=== PATIENT | male | born 1970 | race Caucasian/White ===

== ENCOUNTER 2016-11-11 05:00 | Inpatient (IN) | payer BC ==
--- NOTE | ~2016-11-11 | OP ---
Record Of Operation [facility] [address] [place]. [address] NAME: KAYKAY HEBERT : 68 STATUS : ADM IN PAT#: [id number] AGE: 46 ADM/REG DATE : 11/11/16 MR#: [id number] REPORT SERV DATE: 11/13/16 DICTATED BY: ARVIND BETTENCOURT DATE: 11/13/16 REPORT STATUS : Draft TRANSCRIBED BY: MODSagrario DATE: 11/13/16 DATE OF PROCEDURE: 11/13/2016 PROCEDURE: Bronchoscopy with bronchoalveolar lavage, endobronchial ultrasound, and transbronchial biopsies. INDICATION FOR PROCEDURE: The patient has a history of lymphoma, status post bone marrow transplant, who comes in with a multifocal pneumonia with microcavitation and mediastinal adenopathy with night sweats. PREOPERATIVE DIAGNOSIS: Multifocal pneumonia. POSTOPERATIVE DIAGNOSIS: Multifocal pneumonia. PROCEDURE NOTE: The patient was brought down to the bronchoscopy suite, the patient was intubated and sedated via anesthesia. The bronchoscope was inserted into the airway, angella was sharp. We instilled lidocaine down the left mainstem, angella, and right mainstem. He had sputum production noted bilaterally in the large airways. We then conducted a bronchoalveolar lavage using two aliquots in the left lower lobe and had a return of around 30. We then switched to endobronchial ultrasound. We were able to identify 4L, 4R, and 11S lymphadenopathy. No ATS station 7 was seen. We attempted 4L initially, but we were unable to obtain sample. We then switched to 4R, for which we obtained three slides and two cell blocks. We then switched to 11S and obtained one slide and two cell blocks. We then changed back to the old scope for transbronchial biopsies of the left lower lobe. We conducted five passes, for which the patient had a miniature amount of bleeding on the last two biopsies. We were able to obtain an adequate sample. At the end, there was hemostasis achieved and no pneumothorax noted. The patient was extubated and had some wheezing, for which albuterol ceased the wheezing in about 1 minute after albuterol puff. OUTCOME: Successful bronchoscopy, please follow up microbiological and cytological studies. JIMENA/GUZMAN Arvind Bettencourt MD / [id number] CC: Irina Hilton N.P.
--- NOTE | ~2016-11-11 | CN ---
Consultation Report [facility] [address] [place]. [address] NAME: KAYKAY HEBERT : 68 STATUS : ADM Joana PAT#: [id number] AGE: 46 ADM/REG DATE : 11/11/16 MR#: [id number] REPORT SERV DATE: 11/12/16 DICTATED BY: ARVIND BETTENCOURT DATE: 11/12/16 REPORT STATUS : Draft TRANSCRIBED BY: MODL DATE: 11/12/16 PULMONARY CONSULT NOTE DATE OF CONSULTATION: 11/12/2016 REQUESTING PHYSICIAN: Dr. Cassidy. REASON FOR CONSULTATION: Multifocal pneumonia in a patient with a history of lymphoma history and history of bone marrow transplant. CHIEF COMPLAINT: Not feeling well for the past 3 months with worsening shortness of breath. HISTORY OF PRESENT ILLNESS: Mr. Hebert is a 46-year-old gentleman with a past medical history of Hodgkin's lymphoma status post stem cell transplant. He had the lymphoma in 2003 and believes he had the stem-cell transplant in 2006. The patient notes that he has had pneumonia in the past. However, about 3 months ago, began having worsening shortness of breath, this has become significantly worse to the point where he states his functional status has become severely impaired, he cannot walk across the house without being short of breath. He does have chills at nighttime along with night sweats. Mild mucus production. Mild wheezing. He also has significant chronic pain which has been amplified in all of this. His sputum production is sometimes yellow to green. He had a CT scan in the ER which showed multifocal pneumonia with miniature cavitation and hilar adenopathy worse on the right. Otherwise, no further complaints. PAST MEDICAL HISTORY: Hodgkin's lymphoma in 2003, stem-cell transplant a couple of years later, chronic pain, history of pneumonia, and tobacco use. MEDICATIONS: The patient is on multiple medications, most prominently oxycodone, Neurontin, Wellbutrin. Tried Chantix recently but had psychogenic problems. ALLERGIES: NO KNOWN DRUG ALLERGIES. FAMILY HISTORY: Multiple family members with underlying coronary artery disease, father of lung cancer, mother had diabetes, other family members with hypertension and heart attacks. SOCIAL HISTORY: The patient is a smoker but recently quit 2 months ago. He works as a automobile painter. No alcohol use. REVIEW OF SYSTEMS: All pertinent review of systems are reviewed and is otherwise negative. PHYSICAL EXAMINATION: VITAL SIGNS: The patient is currently afebrile, heart rate in the 80s, respiratory rate Consultation Report [place] [id number] [facility] [place]. [address] NAME: KAYKAY HEBERT : 68 STATUS : ADM Joana PAT#: [id number] AGE: 46 ADM/REG DATE : 11/11/16 MR#: [id number] REPORT SERV DATE: 11/12/16 DICTATED BY: ARVIND BETTENCOURT DATE: 11/12/16 REPORT STATUS : Draft TRANSCRIBED BY: MODSagrario DATE: 11/12/16 normal, and oxygen saturation 96% on room air with blood pressure currently anywhere between 116 and 140 systolic. GENERAL: The patient is alert and oriented, in no acute distress. HEENT: No cervical lymphadenopathy. NECK: Supple. PULMONARY EXAMINATION: Mild wheezing bilaterally but otherwise good air movement. CARDIAC: Regular rate, no murmurs. ABDOMINAL EXAMINATION: Soft, nontender, and nondistended with positive bowel sounds. EXTREMITIES EXAMINATION: No lower extremity edema, peripheral pulses noted. No cyanosis. NEUROLOGIC: The patient has no focal neurological deficits. PSYCHIATRIC: The patient is calm. LABORATORY EXAMINATION: Mild leukocytosis on admission, good platelet count, negative procalcitonin, good kidney function. BNP is 16. IMAGING: CT scan shows bilateral adenopathy right greater than left with left lower lobe multifocal pneumonia with miniature cavitation. This abnormality is noted in essentially all lung johnson. ASSESSMENT AND PLAN: Mr. Hebert is a 46-year-old gentleman with a past medical history of bone marrow transplant after having Hodgkin's lymphoma, who presents with a multifocal pneumonia in the setting of chills and night sweats which has been going on for three months and worsening shortness of breath. 1. Multifocal pneumonia with mediastinal adenopathy: Unclear of this abnormality, the patient has been started on azithromycin and Rocephin for a presumed community-acquired pneumonia. He has a good differential; however, I am concerned of opportunistic infection in this patient. I gave the patient the option of continuing antibiotics and having a repeat CT scan here in about 2 to 3 weeks to ensure improvement in the pneumonia versus further biopsy. The patient mentioned that he would like to get this taken care of and wanted to proceed forward with bronchoscopy which will entail BAL, EBUS, and transbronchial biopsies. As aspergillosis within the differential transbronchial biopsies will help. We discussed the risk factors of respiratory failure, bleeding, pneumothorax, and with bronchoscopy. The patient would like to proceed after discussing the risks and benefits of this procedure along with alternatives. We will therefore make the patient n.p.o. and set up for bronchoscopy in the morning. 2. Wheezing: The patient has been started on DuoNebs and Dulera, agree with above. 3. Multifocal pneumonia: Continue antibiotics, we will have further studies from bronchoscopy. Thank you very much for this consultation and allowing us to participate in your patient's care, please call us with any further questions or concerns. HFQ/MODL Consultation Report [place] [id number] [facility] [place]. [address] NAME: KAYKAY HEBERT : 68 STATUS : ADM Joana PAT#: [id number] AGE: 46 ADM/REG DATE : 11/11/16 MR#: [id number] REPORT SERV DATE: 11/12/16 DICTATED BY: ARVIND BETTENCOURT DATE: 11/12/16 REPORT STATUS : Draft TRANSCRIBED BY: GUZMAN DATE: 11/12/16 Arvind Bettencourt MD / [id number] CC: Irina Hilton N.P.
--- NOTE | ~2016-11-11 | DS ---
Discharge Summary [place] [id number] [place]. [address] NAME: KAYKAY HEBERT : 68 STATUS : DIS IN PAT#: [id number] AGE: 46 ADM/REG DATE : 11/11/16 MR#: [id number] REPORT SERV DATE: 11/15/16 DICTATED BY: ROSCOE CHAVEZ DATE: 11/14/16 REPORT STATUS : Draft TRANSCRIBED BY: MODL DATE: 11/14/16 ADMISSION DATE: 11/11/2016 DISCHARGE DATE: 11/14/2016 REASON FOR ADMISSION: This is a 46-year-old male, who was admitted with left-sided pneumonia. Chest x-ray on admission would show unrevealing inspiration. CT of the chest, however, showed no PE, but bilateral hilar adenopathy and associated large infiltrative process in the left lung that was diffuse, also white blood cell count of 12,000. DISCHARGE DIAGNOSES: 1. Mediastinal hilar adenopathy. 2. Bilateral pneumonia. 3. History of Hodgkin lymphoma. 4. Chronic pain. 5. Chronic obstructive pulmonary disease. HOSPITAL COURSE: 1. Bilateral pneumonia. Consultation was made to Pulmonary, Dr. Arvind Bettencourt will see the patient. He was concerned the patient would potentially have opportunistic infection. He had given the patient option of continuing antibiotics and having a repeat CT scan in about two to three weeks versus further biopsy and the patient chose biopsy, so a bronchoscopy with BAL and EBUS and transbronchial biopsies were obtained. All pathology was negative and he had successful bronchoscopy. The patient was started on prednisone, Dulera, DuoNeb inhalers, also IV Rocephin and IV azithromycin. He had great improvement in his breathing status and it was felt today that he was stable for discharge. He is able to be weaned off oxygen altogether and was ambulating in room without debilitating shortness of breath. DISCHARGE CONDITION: Stable. DISCHARGE MEDICATIONS: 1. Wellbutrin 150 mg p.o. b.i.d. 2. Neurontin 1200 mg p.o. q.8 hours. 3. Synthroid 75 mcg p.o. daily. 4. Roxicodone 30 mg p.o. q.6 hours p.r.n. pain. 5. OxyContin 160 mg p.o. t.i.d. 6. Phenergan 25 mg p.o. p.r.n. 7. Zantac 150 mg p.o. b.i.d. 8. Colace 250 mg p.o. b.i.d. 9. Multivitamin one tablet daily. 10.Vitamin C one tablet daily. 11.Vitamin D3 one tablet daily. 12.Vitamin B12 one tablet daily. 13.Acetylcysteine 600 mg p.o. b.i.d. 14.Prednisone 20 mg p.o. daily. 15.Omnicef 300 mg p.o. b.i.d. x3 more days. Discharge Summary [place] [id number] [place]. [address] NAME: KAYKAY HEBERT : 68 STATUS : DIS IN PAT#: [id number] AGE: 46 ADM/REG DATE : 11/11/16 MR#: [id number] REPORT SERV DATE: 11/15/16 DICTATED BY: ROSCOE CHAVEZ DATE: 11/14/16 REPORT STATUS : Draft TRANSCRIBED BY: GUZMAN DATE: 11/14/16 16.Azithromycin 500 mg p.o. daily x3 more days. 17.Dulera 200/5 mcg inhaler two puffs inhaled b.i.d. 18.Albuterol MDI 90 mcg per spray two puffs inhaled q.4 hours p.r.n. 19.Albuterol nebulizers 0.083% per 3 mL inhaled q.4 hours p.r.n. Also prescription for nebulizer machine. DISCHARGE PLAN: The patient to establish primary care provider as he does not have one. The patient given phone number to call [facility] to find out which providers take his insurance and who are currently taking patients. Also the patient is to follow up in three months with Dr. Bettencourt for followup chest CT. DICTATED BY: JHOANA Lackey/GUZMAN Roscoe Chavez APN / [id number] CC: Irina Hilton N.P. Hisham F. Qutob, MD
--- NOTE | ~2016-11-11 | HP ---
History And Physical [facility] [address] [facility] [place]. [address] NAME: KAYKAY HEBERT : 68 STATUS : ADM Joana PAT#: [id number] AGE: 46 ADM/REG DATE : 11/11/16 MR#: [id number] REPORT SERV DATE: 11/11/16 DICTATED BY: CLOTILDE PEREZ DATE: 11/11/16 REPORT STATUS : Draft TRANSCRIBED BY: MODL DATE: 11/11/16 DATE OF ADMISSION: 11/11/2016 ATTENDING PHYSICIAN: Dr. Alejo. REASON FOR ADMISSION: Pneumonia, left-side, diffuse. HISTORY OF PRESENT ILLNESS: This is a 46-year-old white male with a history of Hodgkin's lymphoma and a stem cell transplant done at [facility]. He has chronic pain from his low back pain, degenerative disc disease. He is followed by nurse practitioner [facility] [place] with chronic pain management. He sees them every month. He has a nurse practitioner in the [facility] in [place], as primary care, Delphine Luna. This morning, he was in his usual state of uncomfortableness, unable to sleep in the supine position. He has been sleeping in a recliner for the last three years because of his back pain. He is trying a lot down and suddenly awakened with a hard sharp left-sided chest pain. The sharp left-sided chest pain is worse when he takes a deep breath. He tried to get up to throw cold water on his face. He had cold sweating and thought he was having a heart attack. He came to the emergency room, however, his EKG was normal and unchanged from previous and his troponin less than 0.02. His D-dimer test is slightly elevated. He was evaluated by Ryan, the nurse practitioner in the emergency room. CT scan of the chest was obtained that showed no PE, normal coronary arteries, and ascending and descending aorta but there was bilateral hilar adenopathy and associated large infiltrative process in the left lung that was diffuse. He is now coughing up greenish material though he has not manifested fever. His white count is slightly elevated to 12,000. Suspicion for the x-ray was whether this was a reactive adenopathy versus old hilar adenopathy from previous Hodgkin's disease or underlying neoplasm with secondary pneumonia. 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 The patient is admitted to observation for treatment. He says he got pain relief from the IV morphine that was given to him in the emergency room by Ryan. PAST MEDICAL HISTORY: He had Hodgkin's lymphoma treated in 2003 and 2004 with eventual stem- cell transplantation at [facility]. He has been followed by Dr. Wesley's staff there. HOME MEDICATIONS: Include the followin. Artificial Tears one drop p.r.n. 2. Vitamin C 500 mg every morning. 3. Wellbutrin SR 150 mg p.o. b.i.d. 4. Chantix to try to help stop some smoking. History And Physical [address] [place]. [address] NAME: KAYKAY HEBERT : 68 STATUS : ADM Joana PAT#: [id number] AGE: 46 ADM/REG DATE : 11/11/16 MR#: [id number] REPORT SERV DATE: 11/11/16 DICTATED BY: CLOTILDE PEREZ DATE: 11/11/16 REPORT STATUS : Draft TRANSCRIBED BY: GUZMAN DATE: 11/11/16 5. Docusate sodium 200 mg p.o. b.i.d. 6. Gabapentin 1200 mg p.o. q.8 hours. 7. Synthroid 75 mcg p.o. before breakfast. 8. Multivitamin 1 a day. 9. Naproxen 440 mg p.o. p.r.n. 10.Oxycodone 30 mg p.o. q.6 hours p.r.n. pain. 11.Oxycodone SR 80 mg p.o. three times a day. 12.Promethazine 25 mg daily p.r.n. 13.Ranitidine 150 mg p.o. b.i.d. 14.Solaraze Gel to his back p.r.n. 15.Vitamin D3, one a day. 16.B12 a 1000 mcg daily. ALLERGIES: NONE ARE KNOWN. 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 He started drinking when he was age 18 and drank until he was 33. 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 He was once . He has no known children. He believes his first had a child by another man and their marriage was annulled. He was and lived in [place], [place] for a period of time. At one time, had gone to [place] [facility] [place] with Pastor Gold Brandyn who had gotten him back in [place] in the past, so he is back since that time. FAMILY HISTORY: Mother has diabetes. Father has stage IV lung cancer. He is being treated in [place] now. He has a sister with diabetes and a brother with hypertension. REVIEW OF SYSTEMS: He has had no headache or eye pain. He does have a stiff neck. No fever, chills, or night sweats. He has a cough productive of greenish sputum. Left-sided chest pain is better after the morphine. He has no fever, chills, or night sweats. He did have cold sweats this morning when he had the anterior left chest pain. He did not have shortness of breath and the oxygen saturation concurs there is no hypoxemia. He has had no swelling in the lower extremities. No abdominal pain. No melena or hematemesis. No known adenopathy that has come up recently. No melena, hematemesis, fits, seizures, convulsions, unilateral weakness, nausea, vomiting, or diarrhea. The remainder of the review of systems is negative. PHYSICAL EXAMINATION: VITAL SIGNS: Blood pressure 129/88 with a heart rate of 106, respiratory rate 24, and oxygen saturation 97% on arrival. HEENT: EOMI. Sclerae clear. Conjunctivae pink. Rubric facies. NECK: No bruit without any JVD. CHEST: Inspiratory rhonchi and expiratory wheezing bilaterally, perhaps accentuated on the left greater than the right. HEART: Regular S1, S2 without murmur, gallop, or click. ABDOMEN: Soft, nontender. Bowel sounds positive. No HSM. History And Physical [address] [place]. [address] NAME: KAYKAY HEBERT : 68 STATUS : ADM Joana PAT#: [id number] AGE: 46 ADM/REG DATE : 11/11/16 MR#: [id number] REPORT SERV DATE: 11/11/16 DICTATED BY: CLOTILDE PEREZ DATE: 11/11/16 REPORT STATUS : Draft TRANSCRIBED BY: MODL DATE: 11/11/16 EXTREMITIES: Had no edema. Distal pulses are intact at the dorsalis pedis and posterior tibial. NEUROLOGIC: He withdraws to plantar stimulation. Heel Sewer is equal and symmetrical bilaterally. Coordination intact. He has no tremor. He is symmetric and equal neurologically. SKIN: Without rash, ecchymosis, or edema. LYMPHATICS: No adenopathy is palpable. Pharynx is clear. LABORATORY DATA: The CTA of the chest is as above. Chest x-ray was unrevealing with shallow inspiration and AP chest was unrevealing. His lactate level was 0.7. BNP 15.7. His sodium 139, potassium 3.1, creatinine 0.8, BUN 5, glucose 103, and lipase 67. Troponin less than 0.02. White blood cell count 35511, hemoglobin 13.6, hematocrit 39.6, and platelets 249,000. INR 1.1. D-dimer test was slightly elevated at 0.72. ASSESSMENT: 1. Probable pneumonia on the left chest. We will check sedimentation rate and procalcitonin supportive evidence. We will obtain a sputum culture; however, the patient has already received Rocephin and Zithromax by Jun earlier this morning. I am going to go ahead and add prednisone 20 mg a day for 5 days because of pleuritic left chest pain and see how he does with this. Continue the antibiotics converting to cefuroxime and Zithromax to complete the course at home if he is improved in the morning. 2. History of Hodgkin's disease with stem-cell transplant in 2004, seen initially by Dr. Leobardo Gandhi here and then referred to Dr. Steven Wesley at [place]. 3. Chronic pain low back degenerative disk disease and he is followed by the [facility] at [place] and nurse practitioner sees him monthly to refill his narcotics. 4. Hypokalemia. We will replace IV and p.o. 5. Out of nebulizers at home, he has been taking that as recently though he does have some wheezing. He says he wheezes frequently at home. PLAN: As above. We will send to observation with outpatient followup at the [facility]. JW/GUZMAN Clotilde Perez M.D. / [id number] CC: Chaitanya Alejo Jr, MD Beverly Coulter, N.P.
[2016-11-11 04:44] LABS: BASOPHILS 0.3 %; BASOPHILS ABSOLUTE 0.04 10/3/uL (0.0-0.16); EOSINOPHILS 1.6 %; EOSINOPHILS ABSOLUTE 0.21 10/3/uL (0.0-0.53); HEMOGLOBIN 13.6 g/dL (13.6-17.8); IMMATURE GRANULOCYTES 0.5 %; IMMATURE GRANULOCYTES ABSOLUTE 0.07 10/3/uL (0.0-0.11); LYMPHOCYTES 17.5 %; LYMPHOCYTES ABSOLUTE 2.27 10/3/uL (0.67-4.30); MEAN CORPUS HGB CONC 34.3 g/dL (32.0-36.0); MEAN CORPUSCULAR HEMOGLOB 30.4 pg (26.0-34.0); MEAN CORPUSCULAR VOLUME 88.4 fL (80-100); MONOCYTES 8.3 %; MONOCYTES ABSOLUTE 1.08 10/3/uL (0.21-1.20); NEUTROPHILS 71.8 %; PLATELET COUNT 249 10/3/uL (150-400); RBC DISTRIBUTION WIDTH 13.4 % (12.0-16.0); RED CELL COUNT 4.48 10/6/uL (4.7-6.1)
[2016-11-11 04:45] LABS: ER CBC TAT 0 Hrs 04 MinsNP; HEMATOCRIT 39.6 % (40.0-51.0); MANUAL DIFF NO %
[2016-11-11 04:52] LABS: INTERNATIONAL NORMAL RATI 1.1 UNITS (-); PARTIAL THROMBO TIME 30.4 SEC (22.5-37.2); PROTIME (NOT ORD) 14.4 SEC (12.0-14.5)
[2016-11-11 04:55] LABS: D-DIMER QUANTITATIVE 0.72 ug/mLFEU (< 0.50)
[~2016-11-11 05:00] MED LIST: BUDEPRION150 MG PO; CENTRUM TAB1 TAB PO; CYANO1000T PO; DOCUSATE SODIUM; LEVOTHYROXIN75 MCG PO; MULTIVIT/MIN PO; NEUR600 PO; OXYCON80 PO; PR25 PO; ROXICODONE30 MG PO; SOLARAZE3 %/W TOP; VITAMIN B-121000 MC1 SL; VITAMIN C100 MG PO; VITAMIN D1000 UNI1 PO; VITAMIN D400 UNI1 PO; WELLSR150 PO; WELLXL150 PO; ZANTAC 150 PO; ZANTAC25 MG PO
[2016-11-11 05:01] LABS: BUN (BLOOD UREA NITROGEN) 5 MG/DL (6-23); CALCIUM, SERUM 9.4 MG/DL (8.5-10.4); CHEST PAIN PROFILE TAT 0 Hrs 21 Mins; CHLORIDE, SERUM 103 MMOL/L (96-112); CO2 (CARBON DIOXIDE) 29 MMOL/L (24-34); GFR AFRICAN AMERICAN 123 ML/MIN (>=60); GFR NON AFRICAN AMERICAN 106 ML/MIN (>=60); GLUCOSE, SERUM 103 MG/DL (60-99); POTASSIUM, SERUM 3.1 MMOL/L (3.5-5.3); SODIUM, SERUM 139 MMOL/L (135-148); TROPONIN I <0.02 NG/ML (<0.05)
[2016-11-11] MEDS ORDERED: WELLSR150 PO (07:37)
[2016-11-11] MEDS ORDERED: SYN075 PO (07:38)
[2016-11-11] MEDS ORDERED: NEUR400 PO (07:38)
[2016-11-11] MEDS ORDERED: ROXICODONE30 MG PO (07:39)
[2016-11-11] MEDS ORDERED: OXYCON80 PO (07:40)
[2016-11-11] MEDS ORDERED: PR25 PO (07:40)
[2016-11-11] MEDS ORDERED: DSS PO (07:41)
[2016-11-11] MEDS ORDERED: ZANTAC 150 PO (07:41)
[2016-11-11] MEDS ORDERED: ALEVE220 MG PO (07:42)
[2016-11-11] MEDS ORDERED: REFRESH OPH (07:43)
[2016-11-11] MEDS ORDERED: VITC500 PO (07:44)
[2016-11-11] MEDS ORDERED: MULTIVIT/MIN PO (07:44)
[2016-11-11] MEDS ORDERED: SOLARAZE TOP (07:44)
[2016-11-11] MEDS ORDERED: VITAMIN D3 PO (07:45)
[2016-11-11] MEDS ORDERED: VITAMIN B-12 PO (07:45)
[2016-11-11 11:40] LABS: LACTATE 1.1 MMOL/L (0.3-2.4)
[2016-11-11 12:54] LABS: PROCALCITONIN 0.09 ng/mL (<0.5)
[2016-11-12 04:28] LABS: BASOPHILS 0.2 %; BASOPHILS ABSOLUTE 0.02 10/3/uL (0.0-0.16); EOSINOPHILS ABSOLUTE 0.08 10/3/uL (0.0-0.53); IMMATURE GRANULOCYTES 0.7 %; IMMATURE GRANULOCYTES ABSOLUTE 0.06 10/3/uL (0.0-0.11); LYMPHOCYTES 21.2 %; LYMPHOCYTES ABSOLUTE 1.72 10/3/uL (0.67-4.30); MEAN CORPUS HGB CONC 33.9 g/dL (32.0-36.0); MEAN CORPUSCULAR VOLUME 88.5 fL (80-100); MEAN PLATELET VOLUME 9.2 fL (9.2-13.0); MONOCYTES 7.4 %; NEUTROPHILS 69.5 %; NEUTROPHILS ABSOLUTE 5.63 10/3/uL (2.02-8.40); PLATELET COUNT 249 10/3/uL (150-400); RBC DISTRIBUTION WIDTH 13.2 % (12.0-16.0); WHITE BLOOD CELLS 8.1 10/3/uL (4.5-10.5)
[2016-11-12 04:29] LABS: HEMATOCRIT 35.4 % (40.0-51.0); MANUAL DIFF NO %
[2016-11-12 04:51] LABS: BUN (BLOOD UREA NITROGEN) 7 MG/DL (6-23); CALCIUM, SERUM 8.5 MG/DL (8.5-10.4); CHLORIDE, SERUM 109 MMOL/L (96-112); CO2 (CARBON DIOXIDE) 25 MMOL/L (24-34); CREATININE 0.71 MG/DL (0.70-1.30); GFR AFRICAN AMERICAN 129 ML/MIN (>=60); GFR NON AFRICAN AMERICAN 112 ML/MIN (>=60); GLUCOSE, SERUM 103 MG/DL (60-99); POTASSIUM, SERUM 3.7 MMOL/L (3.5-5.3); SODIUM, SERUM 143 MMOL/L (135-148)
[2016-11-12 15:55] LABS: IMMUNOGLOBULIN A 302 MG/DL (70-420); IMMUNOGLOBULIN G 1030 MG/DL (673-1464); IMMUNOGLOBULIN M 90 MG/DL (30-270)
[2016-11-13 04:41] LABS: BUN (BLOOD UREA NITROGEN) 10 MG/DL (6-23); CALCIUM, SERUM 9.1 MG/DL (8.5-10.4); CHLORIDE, SERUM 107 MMOL/L (96-112); CO2 (CARBON DIOXIDE) 26 MMOL/L (24-34); CREATININE 1.01 MG/DL (0.70-1.30); GFR AFRICAN AMERICAN 102 ML/MIN (>=60); GFR NON AFRICAN AMERICAN 88 ML/MIN (>=60); GLUCOSE, SERUM 120 MG/DL (60-99); POTASSIUM, SERUM 3.3 MMOL/L (3.5-5.3); SODIUM, SERUM 140 MMOL/L (135-148)
[2016-11-13 15:50] LABS: BD FL LYMPH (NOT ORD) 1 %; BF BASO (NOT OF) 0 %; BF LARGE MONONUCLEAR 8 %; BF TOTAL CELL CT (NOT ORD 1974 /MM3; BODY FLUID EOS (NOT ORD) 0 %; BODY FLUID SEG (NOT ORD) 91 %
[2016-11-13 15:51] LABS: BD FL SOURCE (NOT ORD) BAL; BODY FLUID RBC (NOT ORD) 1000 /MM3
[2016-11-14 16:44] LABS: ANGIOTENSIN-CONVERTING ENZYME 17 U/L (4-60)
[2016-11-14] MEDS ORDERED: NAC600 MG PO (16:56)
[2016-11-14] MEDS ORDERED: OMNICEF300 PO (16:57)
[2016-11-14] MEDS ORDERED: ZITHROMAX500 MG PO (16:57)
[2016-11-14] MEDS ORDERED: P20 PO (16:57)
[2016-11-14] MEDS ORDERED: DULERA 200 MCG/13 GM INH (16:58)
[2016-11-14] MEDS ORDERED: VENTOLIN HFA INH (16:58)
[2016-11-14] MEDS ORDERED: ALBUTEROL0.083 % INH (16:59)
== END 2016-11-14 19:05 | disposition home or self-care (01) | DRG 167 ==
LOC: ER 05:00 → CDU1 09:42 → 5SO 11-13 17:15
PROVIDERS: Internal Medicine; Internal Medicine Critical Care Medicine; Nurse Practitioner Family
PROC: 0B9B8ZX Drainage of Left Lower Lobe Bronchus, Via Natural or Artificial Opening Endoscopic, Diagnostic (ICD-10-PCS; principal; 2016-11-13 14:17)
PROC: 07B74ZX Excision of Thorax Lymphatic, Percutaneous Endoscopic Approach, Diagnostic (ICD-10-PCS; 2016-11-13 14:17)
PROC: 0BBJ8ZX Excision of Left Lower Lung Lobe, Via Natural or Artificial Opening Endoscopic, Diagnostic (ICD-10-PCS; 2016-11-13 14:17)
DX: J18.9 Pneumonia, unspecified organism (principal); Z94.81 Bone marrow transplant status; J44.9 Chronic obstructive pulmonary disease, unspecified; E87.6 Hypokalemia; M51.36 Other intervertebral disc degeneration, lumbar region; R59.9 Enlarged lymph nodes, unspecified; Z85.71 Personal history of Hodgkin lymphoma; Z87.891 Personal history of nicotine dependence
CPT/HCPCS: 71010; 71275; 80048; 82164; 82784; 82785; 83605; 83690; 83735; 83880; 84132; 84145; 84484; 85025; 85379; 85610; 85652; 85730; 86644; 86645; 87015; 87040; 87070; 87102; 87116; 87205; 88112; 88172; 88173; 88305; 88333; 89051; 93005; 94640; 96365; 96375; 99285; A9270-GY; C1725; J0456; J2250; J2370; J2405; J2710; J3010; Q9967